=== PATIENT | female | born 1970 | race Caucasian/White ===

== ENCOUNTER 2017-04-04 16:03 | Emergency (ER) | payer MEDICAID ==
[~2017-04-04] VITALS: Ht 152.4 cm; Wt 67.0 kg
[~2017-04-04 16:03] MED LIST: ACET1TAB40 PO; IBUP-1542 PO
[2017-04-04 16:08] VITALS: Ht 152.4 cm; Wt 67.0 kg
[2017-04-04] MEDS ORDERED: ONDANSETRON (ODT) 4 MG TAB ODT STA (16:39)
--- NOTE | 2017-04-04 16:46 | ERD ---
ER Documentation Chief Complaint Date/Time DATE: 04/04/17 TIME: 16:43 Chief Complaint pt c/o dizziness with standing x 3 days HPI This is a 46-year-old female presents emergency department today complaining of dizziness, neck pain, headache in the back of her head, nausea for the past 3 days. States that the last time she had her menstrual cycle beginning of March she had heavy menstrual cycle. States when she walks she "feels drunk" . denies any fevers or chills, dysuria. ROS All systems reviewed and are negative except as per history of present illness. Medications Home Meds Active Scripts Ondansetron Hcl* (Zofran*) 4 Mg Tablet, 4 MG PO Q6H for NAUSEA AND/OR VOMITING, #30 TAB Prov:BENITA BECKHAM PA-C 04/04/17 Meclizine Hcl* (Antivert*) 12.5 Mg Tab, 12.5 MG PO Q6H Y for DIZZINESS, #20 TAB Prov:BENITA BECKHAM PA-C 04/04/17 Acetaminophen* (Tylophen*) 500 Mg Capsule, 1 CAP PO Q6H Y for PAIN AND OR ELEVATED TEMP, #30 CAP Prov:BENITA BECKHAM PA-C 04/04/17 Ibuprofen* (Motrin*) 600 Mg Tab, 600 MG PO Q6, #30 TAB Prov:BENITA BECKHAMC 04/04/17 Acetaminophen-Codeine* (Acetaminophen-Cod #3*) 300-30 Mg Tab, 1 TAB PO Q4H Y for PAIN LEVEL 6-10, #15 TAB Prov:CHO,MAJOR 02/26/15 Ibuprofen* (Motrin*) 600 Mg Tab, 600 MG PO Q6 for PAIN LEVEL 1-5, #15 TAB Prov:CHO,MAJOR 15 Allergies Allergies: Coded Allergies: No Known Drug Allergies (Verified Allergy, Unknown, 04/04/17) PMhx/Soc Medical and Surgical Hx: pt denies Medical Hx, pt denies Surgical Hx History of Surgery: No Anesthesia Reaction: No Hx Neurological Disorder: No Hx Respiratory Disorders: No Hx Cardiac Disorders: No Hx Psychiatric Problems: No Hx Miscellaneous Medical Probl: No Hx Alcohol Use: No Hx Substance Use: No Hx Tobacco Use: No Smoking Status: Never smoker Physical Exam Vitals Vital Signs Date Time Temp Pulse Resp B/P Pulse Ox O2 Delivery O2 Flow Rate FiO2 04/04/17 16:08 98.4 76 18 126/82 99 Physical Exam Const: No acute distress Head: Atraumatic Eyes: Normal Conjunctiva. PERRLA. EOM intact. ENT: Normal External Ears, Nose and Mouth. Neck: Full range of motion..~ No meningismus. Resp: Clear to auscultation bilaterally Cardio: Regular rate and rhythm, no murmurs Abd: Soft, non tender, non distended. Normal bowel sounds Skin: No petechiae or rashes Back: No midline or flank tenderness Ext: No cyanosis, or edema Neur: Awake and alert. No focal neurologic deficits. No gait ataxia. Psych: Normal Mood and Affect Result Diagram: 04/04/17164904/04/17 165 Results 24 hrs Laboratory Tests Test 04/04/17 16:50 04/04/17 17:04 White Blood Count 8.410^3/ul Red Blood Count 4.5110^6/ul Hemoglobin 12.3g/dl Hematocrit 36.5% Mean Corpuscular Volume 80.9fl Mean Corpuscular Hemoglobin 27.3pg Mean Corpuscular Hemoglobin Concent 33.7g/dl Red Cell Distribution Width 13.7% Platelet Count 75034^3/UL Mean Platelet Volume 9.8fl Neutrophils % 59.2% Lymphocytes % 32.7% Monocytes % 6.5% Eosinophils % 1.0% Basophils % 0.4% Nucleated Red Blood Cells % 0.0/100WBC Neutrophils # (Manual) 5.010^3/ul Lymphocytes # 2.810^3/ul Monocytes # 0.610^3/ul Eosinophils # 0.110^3/ul Basophils # 0.010^3/ul Nucleated Red Blood Cells # 0.010^3/ul Sodium Level 139mmol/L Potassium Level 3.5mmol/L Chloride Level 103mmol/L Carbon Dioxide Level 26mmol/L Anion Gap 14 Blood Urea Nitrogen 10mg/dl Creatinine 0.76mg/dl Glucose Level 109mg/dl Calcium Level 9.6mg/dl Total Bilirubin 0.1mg/dl Direct Bilirubin 0.00mg/dl Indirect Bilirubin 0.1mg/dl Aspartate Amino Transf (AST/SGOT) 37IU/L Alanine Aminotransferase (ALT/SGPT) 60IU/L Alkaline Phosphatase 93IU/L Total Protein 8.2g/dl Albumin 4.4g/dl Globulin 3.80g/dl Albumin/Globulin Ratio 1.15 Bedside Urine pH (LAB) 5.5 Bedside Urine Protein (LAB) Negative Bedside Urine Glucose (UA) Negative Bedside Urine Ketones (LAB) Negative Bedside Urine Blood Trace-intact Bedside Urine Nitrite (LAB) Negative Bedside Urine Leukocyte Esterase (L Negative Current Medications Medications (Trade) Dose Ordered Sig/Ana Route PRN Reason Start Time Stop Time Status Last Admin Dose Admin Ondansetron HCl (Zofran Odt) 4 mg ONCE STAT ODT 04/04/17 16:39 04/04/17 16:43 DC 04/04/17 16:51 Meclizine HCl (Antivert) 25 mg ONCE ONCE PO 04/04/17 17:00 04/04/17 17:01 DC 04/04/17 16:51 Ibuprofen (Motrin) 800 mg ONCE ONCE PO 04/04/17 17:00 04/04/17 17:01 DC 04/04/17 16:51 DIAGNOSTIC IMAGING REPORT Patient: KACEY CONROY : 1970 Age: 46 Sex: F MR #: [id number] DOS: 04/04/17 0000 Ordering MD: BENITA BECKHAM PA-C Location: [facility] Room/Bed: PROCEDURE: CT brain without contrast CLINICAL INDICATION: Dizziness . TECHNIQUE: CT of the brain without contrast was performed on a multidetector CT scanner, with multiplanar reformats. One or more of the following dose reduction techniques were used: Automated exposure control, adjustment in mA and / or kV according to patient size, use of iterative reconstructive technique. CTDIvol = 44 mGy; DLP = 720 mGy-cm. COMPARISON: None available FINDINGS: No acute intracranial hemorrhage is identified. No extra-axial fluid collection is seen. There is no mass effect. No midline shift is identified. Ventricles and sulci are within normal limits for size and configuration. The density of the brain is unremarkable. Singh-white differentiation is preserved. Calvarium and skull base are intact. Mastoid air cells and imaged paranasal sinuses grossly clear. IMPRESSION: Unremarkable noncontrast CT of the brain. RPTAT: VV .Ramiro Schneider MD, MD Date Time Electronically viewed and signed by .Ramiro Schneider MD, MD on 04/04/2017 17:12 .O/ CC: BENITA BECKHAM PA-C Procedures/MDM This 46-year-old female presents the emergency department today with multiple complaints. Given her complaints I did obtain laboratory workup as well as a UA and EKG. Laboratory workup shows no elevated white blood cell count. She is not anemic. Platelets are within normal limits. Electrolytes are within normal limits. Glucose within normal limits. Liver enzymes are within normal limits. UA is negative for infection Urine test is negative EKG read and interpreted by Dr. Reddy rate [address] elevation. No QT elongation are normal sinus rhythm. Low suspicion for acute NE, PE, pericarditis Discussed the patient with Dr. Reddy and he has recommended a head CT Head CT noncontrast is unremarkable. Patient has no gait ataxia and no focal neurologic deficits. Low suspicion for acute hemorrhage, mass, abscess, meningitis. She is afebrile and otherwise well-appearing. She does have full active range of motion of her neck. Patient was given Zofran, meclizine and Motrin here in the emergency department. When I went to reevaluate the patient she reported feeling better. She was sitting up talking on her phone. Symptoms at this time is consistent with dizziness possibly benign positional vertigo versus viral symptoms. Low suspicion for sepsis, meningitis, acute hemorrhage. Patient given a prescription for Zofran, meclizine and Tylenol and Motrin. At this time the patient is stable for discharge and outpatient management. Patient should follow up with their PCP in the next 1-2 days. They may return to the emergency department sooner for any persistent or worsening of symptoms. Patient understood and agreed with the plan. Patient was given Motrin, Zofran and meclizine here in the emergency department Departure Diagnosis: Primary Impression: Dizziness Condition: Fair BENITA BECKHAM PA-C Apr 04, 2017 16:45
[2017-04-04 16:58] LABS: URINE BLOOD (Dip) POC Trace-intact (NEGATIVE)
[2017-04-04] MEDS ORDERED: IBUPROFEN 800 MG TAB PO ONE (17:00)
[2017-04-04] MEDS ORDERED: MECLIZINE 12.5 MG TAB PO ONE (17:00)
--- NOTE | 2017-04-04 17:13 | RADRPT ---
PROCEDURE: CT brain without contrast CLINICAL INDICATION: Dizziness . TECHNIQUE: CT of the brain without contrast was performed on a multidetector CT scanner, with multi planar reformats. One or more of the following dose reduction techniques were used: Automated expos ure control, adjustment in mA and / or kV according to patient size, use of iterative reconstructive technique. CTDIvol = 44 mGy; DLP = 720 mGy-cm. COMPARISON: None available FINDINGS: No acute intracranial hemorrhage is identified. No extra-axial fluid collection is seen. There is no mass effect. No midline shift is identified. Ventricles and sulci are within normal limits for size and configuration. The density of the brain is unremarkable. Singh-white differentiation is preserved. Calvarium and skull base are intact. Mastoid air cells and imaged paranasal sinuses grossly clear. IMPRESSION: Unremarkable noncontrast CT of the brain. RPTAT: VV .Ramiro Schneider MD, Date Time Electronically viewed and signed by .Ramiro Schneider MD, on 04/04/2017 17:12 .O/
[2017-04-04 17:21] LABS: BASOPHILS % 0.4 % (0.0-2.0); EOSINOPHILS # 0.1 10^3/ul (0.0-0.5); HEMATOCRIT 36.5 % (37.0-47.0); HEMOGLOBIN 12.3 g/dl (12.0-16.0); LYMPHOCYTES # 2.8 10^3/ul (0.8-2.9); LYMPHOCYTES % 32.7 % (15.0-51.0); MEAN CORPUSCULAR HEMOGLOBIN 27.3 pg (29.0-33.0); MEAN CORPUSCULAR HGB CONC 33.7 g/dl (32.0-37.0); MEAN CORPUSCULAR VOLUME 80.9 fl (82.0-101.0); MEAN PLATELET VOLUME 9.8 fl (7.4-10.4); MONOCYTE # 0.6 10^3/ul (0.3-0.9); MONOCYTES % 6.5 % (0.0-11.0); NEUTROPHILS % 59.2 % (39.0-77.0); PLATELET COUNT 271 10^3/UL (140-415); RED BLOOD COUNT 4.51 10^6/ul (4.20-5.40); RED CELL DISTRIBUTION WIDTH 13.7 % (11.5-14.5); WHITE BLOOD COUNT 8.4 10^3/ul (4.8-10.8)
[2017-04-04 17:49] LABS: ALBUMIN 4.4 g/dl (3.3-4.9); ALBUMIN/GLOBULIN RATIO 1.15; BILIRUBIN,INDIRECT 0.1 mg/dl (0-1.1); BILIRUBIN,TOTAL 0.1 mg/dl (0.2-1.3); CALCIUM 9.6 mg/dl (8.4-10.2); CREATININE 0.76 mg/dl (0.44-1.00); POTASSIUM 3.5 mmol/L (3.5-5.1); TOTAL PROTEIN 8.2 g/dl (6.1-8.1)
[2017-04-04] MEDS ORDERED: IBUP-1542 PO (17:55)
[2017-04-04] MEDS ORDERED: MECL12.574 PO (17:56)
[2017-04-04] MEDS ORDERED: ACET500C5 PO (17:56)
[2017-04-04] MEDS ORDERED: ONDA4TAB8 PO (17:56)
== END 2017-04-04 18:20 | disposition home or self-care (01) ==
LOC: FTE 16:03
DX: R42 Dizziness and giddiness (principal); R11.0 Nausea
CPT/HCPCS: 36415; 70450; 80053; 81003; 85025; 93005; Z7502; Z7610

== ENCOUNTER 2017-07-03 14:03 | Emergency (ER) | payer MEDICAID ==
[~2017-07-03] VITALS: Wt 68.2 kg
[~2017-07-03 14:03] MED LIST changes: +ACET500C5 PO; +MECL12.574 PO; +ONDA4TAB8 PO
[2017-07-03] MEDS ORDERED: morphine 4 MG/ML VIAL IV STA (14:28)
[2017-07-03] MEDS ORDERED: SOD CHLORIDE 0.9% 1,000 ML IV STA (14:28)
[2017-07-03] MEDS ORDERED: METOCLOPRAMIDE 10 MG INJ IV STA (14:28)
[2017-07-03] MEDS ORDERED: ACETAMINOPHEN 325 MG TAB PO STA (14:28)
[2017-07-03] MEDS ORDERED: DIPHENHYDRAMINE 50 MG INJ IV STA (14:28)
--- NOTE | 2017-07-03 14:40 | ERD ---
ER Documentation Chief Complaint Chief Complaint fried, dizziness, rohan and ll extremity pain denies trauma HPI 46-year-old female with a history of vertigo, presents emergency department for complaints of intermittent, throbbing, 8 out of 10 headache located behind bilateral eyes 4 days. Patient notes associated blurred vision, nausea and vomiting. She also notes pain and weakness along her left upper and left lower extremity. She denies fever, chills, abdominal pain, trauma, fall or head injury. She denies prior imaging studies of her brain. She denies history of hypertension or diabetes. ROS All systems reviewed and are negative except as per history of present illness. Medications Home Meds Active Scripts Ondansetron Hcl* (Zofran*) 4 Mg Tablet, 4 MG PO Q6H for NAUSEA AND/OR VOMITING, #30 TAB Prov:BENITA BECKHAM PA-C 04/04/17 Meclizine Hcl* (Antivert*) 12.5 Mg Tab, 12.5 MG PO Q6H Y for DIZZINESS, #20 TAB Prov:BENITA BECKHAM PA-C 04/04/17 Acetaminophen* (Tylophen*) 500 Mg Capsule, 1 CAP PO Q6H Y for PAIN AND OR ELEVATED TEMP, #30 CAP Prov:BENITA BECKHAM PA-C 04/04/17 Ibuprofen* (Motrin*) 600 Mg Tab, 600 MG PO Q6, #30 TAB Prov:BENITA BECKHAMC 04/04/17 Acetaminophen-Codeine* (Acetaminophen-Cod #3*) 300-30 Mg Tab, 1 TAB PO Q4H Y for PAIN LEVEL 6-10, #15 TAB Prov:CHO,MAJOR 02/26/15 Ibuprofen* (Motrin*) 600 Mg Tab, 600 MG PO Q6 for PAIN LEVEL 1-5, #15 TAB Prov:CHO,MAJOR 15 Allergies Allergies: Coded Allergies: No Known Drug Allergies (Verified Allergy, Unknown, 07/03/17) PMhx/Soc History of Surgery: No Anesthesia Reaction: No Hx Neurological Disorder: No Hx Respiratory Disorders: No Hx Cardiac Disorders: No Hx Psychiatric Problems: No Hx Miscellaneous Medical Probl: No Hx Alcohol Use: No Hx Substance Use: No Hx Tobacco Use: No Physical Exam Vitals Vital Signs Date Time Temp Pulse Resp B/P Pulse Ox O2 Delivery O2 Flow Rate FiO2 07/03/17 14:05 99.1 93 20 142/90 97 Physical Exam Const: Well developed, well-nourished, in no acute distress Head: Atraumatic Eyes: Normal Conjunctiva, PERRLA, EOMI ENT: Normal External Ears, Nose. Patient with asymmetric smile with limited movement on the left side. Able to puff cheeks and raise eyebrows equally. Neck: Full range of motion..~ No meningismus. Resp: Clear to auscultation bilaterally Cardio: Regular rate and rhythm, no murmurs Abd: Soft, non tender, non distended. Normal bowel sounds Skin: No petechiae or rashes Back: No midline or flank tenderness Ext: No cyanosis, or edema. Patient with good strength against resistance at bilateral upper extremities at the shoulder and elbow joints. Patient with good strength against resistance however slightly limited at the left lower extremity at the hip and knee joint. Able to bear full weight and ambulate with steady gait. Neur: Awake and alert. Cranial nerves II through XII intact. Finger to nose intact. No pronator drift. Psych: Normal Mood and Affect Result Diagram: 07/03/17 1508 07/03/17 1508 Results 24 hrs Laboratory Tests Test 07/03/17 14:00 07/03/17 15:08 Urine Color YELLOW Urine Clarity CLEAR Urine pH 5.0 Urine Specific [place] 1.014 Urine Ketones NEGATIVEmg/dL Urine Nitrite NEGATIVEmg/dL Urine Bilirubin NEGATIVEmg/dL Urine Urobilinogen NEGATIVEmg/dL Urine Leukocyte Esterase NEGATIVELeu/ul Urine Microscopic RBC 2/HPF Urine Microscopic WBC 1/HPF Urine Hemoglobin 2+mg/dL Urine Glucose NEGATIVEmg/dL Urine Total Protein NEGATIVEmg/dl White Blood Count 9.210^3/ul Red Blood Count 4.6610^6/ul Hemoglobin 12.2g/dl Hematocrit 37.1% Mean Corpuscular Volume 79.6fl Mean Corpuscular Hemoglobin 26.2pg Mean Corpuscular Hemoglobin Concent 32.9g/dl Red Cell Distribution Width 13.8% Platelet Count 65667^3/UL Mean Platelet Volume 9.5fl Neutrophils % 58.9% Lymphocytes % 30.1% Monocytes % 8.1% Eosinophils % 1.6% Basophils % 0.8% Nucleated Red Blood Cells % 0.0/100WBC Neutrophils # 5.410^3/ul Lymphocytes # 2.810^3/ul Monocytes # 0.710^3/ul Eosinophils # 0.210^3/ul Basophils # 0.110^3/ul Nucleated Red Blood Cells # 0.010^3/ul Prothrombin Time 12.7Sec Prothrombin Time Ratio 1.0 INR International Normalized Ratio 0.95 Activated Partial Thromboplast Time 27.5Sec Sodium Level 140mmol/L Potassium Level 4.1mmol/L Chloride Level 103mmol/L Carbon Dioxide Level 26mmol/L Anion Gap 15 Blood Urea Nitrogen 15mg/dl Creatinine 0.57mg/dl Glucose Level 134mg/dl Calcium Level 9.5mg/dl Total Bilirubin 0.1mg/dl Direct Bilirubin 0.00mg/dl Indirect Bilirubin 0.1mg/dl Aspartate Amino Transf (AST/SGOT) 61IU/L Alanine Aminotransferase (ALT/SGPT) 100IU/L Alkaline Phosphatase 92IU/L Troponin I < 0.012ng/ml Total Protein 8.4g/dl Albumin 4.4g/dl Globulin 4.00g/dl Albumin/Globulin Ratio 1.10 Current Medications Medications (Trade) Dose Ordered Sig/Ana Route PRN Reason Start Time Stop Time Status Last Admin Dose Admin Sodium Chloride (NS) 1,000 ml @ 1,000 mls/hr Q1H STAT IV 07/03/17 14:28 07/03/17 15:27 DC 07/03/17 15:13 Acetaminophen (Tylenol Tab) 650 mg ONCE STAT PO 07/03/17 14:28 07/03/17 14:31 DC 07/03/17 15:15 Metoclopramide HCl (Reglan) 10 mg ONCE STAT IV 07/03/17 14:28 07/03/17 14:31 DC 07/03/17 15:14 Morphine Sulfate (morphine) 4 mg ONCE STAT IV 07/03/17 14:28 07/03/17 14:31 DC 07/03/17 15:15 Diphenhydramine HCl (Benadryl) 25 mg ONCE STAT IV 07/03/17 14:28 07/03/17 14:31 DC 07/03/17 15:13 Procedures/MDM PROCEDURE: CT Head without. CLINICAL INDICATION: Headache. TECHNIQUE: The study was performed utilizing a multi-slice, multidetector CT scanner. Direct spiral 1 mm axial sections were obtained through the head without the use of intravenous contrast material. 1 or more of the following dose reduction techniques were utilized: Automated exposure control, adjustment of the mA and/or kV according to patient's size, iterative reconstruction technique. Coronal and sagittal reformations were obtained. The images were reviewed on a PACS workstation. DICOM images are available. RADIATION DOSE: CTDIvol: 44.2 mGy DLP: 630.2 mGy-cm COMPARISON: 04/04/2017, 02/26/2015 FINDINGS: There is no intracranial hemorrhage, extra-axial fluid collection, mass lesion, midline shift or hydrocephalus. The ventricles, sulci and cisterns are within normal limits. The white matter is unremarkable. The lassiter-white matter differentiation is preserved. The basal cisterns are patent. The midline structures are intact. The orbits, calvarium and extracranial soft tissues are normal in appearance. The visualized paranasal sinuses, mastoid air cells and middle ear cavities are normally aerated. IMPRESSION: 1. No acute intracranial abnormality. No intracranial hemorrhage, extra-axial fluid collection, mass lesion or hydrocephalous. RPTAT: HGAS .José Elmore MD, MD Date Time Electronically viewed and signed by .José Elmore MD, MD on 07/03/2017 14: 57 .S/ CC: HOLLIE MORAN PA-C EKG: Interpreted by Kj Reddy and myself Rate/Rhythm: Normal Sinus Rhythm QRS, ST, T-waves: No changes consistent w/ acute ischemia Impression: No evidence of ischemia or arrhythmia This is a 46-year-old female with a history of vertigo who presents the emergency department for 8 out of 10 headache with associated dizziness described as a room spinning along with left sided subjective weakness, and blurred vision. Vital signs reviewed and within normal limits upon arrival. Patient was well-appearing and able to answer questions and perform his equal exam appropriately. She exhibited slight asymmetric smile and weakness to the left lower extremity against resistance. Physical exam otherwise unremarkable. Without history of diabetes, hypertension or other high risk factors. CBC showed no evidence of systemic infection or severe anemia. CMP showed no evidence of electrolyte abnormalities, severe acidosis, alkalosis , renal failure, or liver disease. UA showed no evidence of acute infection or hematuria. Urine test was negative. CT of the brain negative for acute process. She Received fluids, pain and nausea medication while in the emergency department and reported significant improvement of her symptoms. The patient's headache is unlikely related to serious etiology. The patient does not exhibit any clinical signs or symptoms, and has no risk factors to suggest headache etiology such as subarachnoid hemorrhage, acute vertebral or carotid dissection, intracranial mass, epidural, subdural hematoma, dural venous sinus thrombosis, giant cell arteritis, or pseudotumor cerebri. Patient symptoms likely due to vertigo versus atypical migraine headache. Case is discussed with Dr. Luiz Boswell who agreed with workup and plan to discharge with close follow-up with primary care in 1-2 days. Strict return precautions discussed Based on patient's history of present illness and physical examination the decision was made to discharge. The patient was re-evaluated after ED treatment and stabilizing measures, and symptoms have improved. There is no evidence of life threatening injuries or illnesses at this time. On re-examination, patient resting in no distress, stable vital signs, reports feeling better and safe for discharge with outpatient follow up with PMD in 1-2 days. Patient given return precautions. Departure Diagnosis: Primary Impression: Headache Headache type: unspecified Headache chronicity pattern: acute headache Intractability: not intractable Qualified Code: R51 - Acute nonintractable headache, unspecified headache type Additional Impressions: Dizziness Weakness of left lower extremity Weakness of left arm HOLLIE MORAN PA-C Jul 03, 2017 14:40
--- NOTE | 2017-07-03 14:57 | RADRPT ---
PROCEDURE: CT Head without. CLINICAL INDICATION: Headache. TECHNIQUE: The study was performed utilizing a multi-slice, multidetector CT scanner. Direct spira l 1 mm axial sections were obtained through the head without the use of intravenous contrast materia l. 1 or more of the following dose reduction techniques were utilized: Automated exposure control, adjustment of the mA and/or kV according to patient's size, iterative reconstruction technique. Co fauzia and sagittal reformations were obtained. The images were reviewed on a PACS workstation. DICOM images are available. RADIATION DOSE: CTDIvol: 44.2 mGyDLP: 630.2 mGy-cm COMPARISON: 04/04/2017, 02/26/2015 FINDINGS: There is no intracranial hemorrhage, extra-axial fluid collection, mass lesion, midline shift or hyd rocephalus. The ventricles, sulci and cisterns are within normal limits. The white matter is unrem arkable. The lassiter-white matter differentiation is preserved. The basal cisterns are patent. The m idline structures are intact. The orbits, calvarium and extracranial soft tissues are normal in veronica earance. The visualized paranasal sinuses, mastoid air cells and middle ear cavities are normally ae rated. IMPRESSION: 1. No acute intracranial abnormality. No intracranial hemorrhage, extra-axial fluid collection, ma ss lesion or hydrocephalous. RPTAT: HGAS .José Elmore MD, Date Time Electronically viewed and signed by .José Elmore MD, MD on 07/03/2017 14:57 .S/
[2017-07-03 15:20] LABS: ADD UMIC YES; UR ASCORBIC ACID NEGATIVE (NEGATIVE); UR BILIRUBIN (Dip) NEGATIVE (NEGATIVE); UR BLOOD (Dip) 2+ mg/dL (NEGATIVE); UR CLARITY CLEAR (CLEAR); UR COLOR YELLOW (YELLOW); UR GLUCOSE (Dip) NEGATIVE (NEGATIVE); UR KETONES (Dip) NEGATIVE (NEGATIVE); UR LEUKOCYTE ESTERASE (Dip) NEGATIVE Leu/ul (NEGATIVE); UR NITRITE (Dip) NEGATIVE (NEGATIVE); UR RBC 2 /HPF (0-5); UR SPECIFIC GRAVITY (Dip) 1.014 (1.003-1.030); UR TOTAL PROTEIN (Dip) NEGATIVE (NEGATIVE); UR UROBILINOGEN (Dip) NEGATIVE (NEGATIVE)
[2017-07-03 15:32] LABS: INR 0.95; PARTIAL THROMBOPLASTIN TIME 27.5 Sec (25.0-35.0); PROTIME 12.7 Sec (12.2-14.2)
[2017-07-03 15:41] LABS: BASOPHIL # 0.1 10^3/ul (0.0-0.1); BASOPHILS % 0.8 % (0.0-2.0); EOSINOPHILS # 0.2 10^3/ul (0.0-0.5); EOSINOPHILS % 1.6 % (0.0-7.0); HEMATOCRIT 37.1 % (37.0-47.0); HEMOGLOBIN 12.2 g/dl (12.0-16.0); LYMPHOCYTES # 2.8 10^3/ul (0.8-2.9); LYMPHOCYTES % 30.1 % (15.0-51.0); MEAN CORPUSCULAR HEMOGLOBIN 26.2 pg (29.0-33.0); MEAN CORPUSCULAR HGB CONC 32.9 g/dl (32.0-37.0); MEAN CORPUSCULAR VOLUME 79.6 fl (82.0-101.0); MEAN PLATELET VOLUME 9.5 fl (7.4-10.4); MONOCYTE # 0.7 10^3/ul (0.3-0.9); MONOCYTES % 8.1 % (0.0-11.0); NEUTROPHIL # 5.4 10^3/ul (1.6-7.5); NEUTROPHILS % 58.9 % (39.0-77.0); PLATELET COUNT 276 10^3/UL (140-415); RED BLOOD COUNT 4.66 10^6/ul (4.20-5.40); RED CELL DISTRIBUTION WIDTH 13.8 % (11.5-14.5); WHITE BLOOD COUNT 9.2 10^3/ul (4.8-10.8)
[2017-07-03 15:43] LABS: ALANINE AMINOTRANSFERASE 100 IU/L (13-69); ALBUMIN 4.4 g/dl (3.3-4.9); ALKALINE PHOSPHATASE 92 IU/L (42-121); ANION GAP 15 (8-16); ASPARTATE AMINO TRANSFERASE 61 IU/L (15-46); BILIRUBIN,INDIRECT 0.1 mg/dl (0-1.1); BILIRUBIN,TOTAL 0.1 mg/dl (0.2-1.3); BLOOD UREA NITROGEN 15 mg/dl (7-20); CALCIUM 9.5 mg/dl (8.4-10.2); CARBON DIOXIDE 26 mmol/L (21-31); CHLORIDE 103 mmol/L (97-110); CREATININE 0.57 mg/dl (0.44-1.00); GLUCOSE 134 mg/dl (70-220); POTASSIUM 4.1 mmol/L (3.5-5.1); SODIUM 140 mmol/L (135-144); TOTAL PROTEIN 8.4 g/dl (6.1-8.1)
[2017-07-03 15:54] LABS: TROPONIN-I < 0.012 ng/ml (0.00-0.12)
[2017-07-03] MEDS ORDERED: MECL12.574 PO (16:14)
[2017-07-03] MEDS ORDERED: NAPR-260 PO (16:14)
[2017-07-03 16:35] VITALS: BP 138/82; PULSE 80; RESP 20; TEMP 98.6
== END 2017-07-03 16:36 | disposition home or self-care (01) ==
LOC: FTE 14:03
DX: R51 Headache (principal); R53.1 Weakness; R07.9 Chest pain, unspecified
CPT/HCPCS: 36415; 70450; 80053; 81001; 84484; 85025; 85610; 85730; 93005; 96374; 96375; J1200; J2270; J2765; J7030; Z7502; Z7610

== ENCOUNTER 2018-11-21 18:12 | Emergency (ER) | payer MEDICAID ==
[~2018-11-21] VITALS: Ht 152.4 cm; Wt 67.1 kg
[~2018-11-21 18:12] MED LIST changes: +NAPR-985 PO
[2018-11-21 19:03] VITALS: Ht 152.4 cm; Wt 67.1 kg
[2018-11-21] MEDS ORDERED: KETOROLAC 30 MG INJ IV STA (21:32)
[2018-11-21] MEDS ORDERED: DIPHENHYDRAMINE 50 MG INJ IV STA (21:32)
[2018-11-21] MEDS ORDERED: SOD CHLORIDE 0.9% 1,000 ML IV STA (21:32)
[2018-11-21] MEDS ORDERED: METOCLOPRAMIDE 10 MG INJ IV STA (21:32)
--- NOTE | 2018-11-21 21:43 | ERD ---
ER Documentation Chief Complaint Chief Complaint KRAFT w/ dizziness x1 week HPI This is a 48-year-old female with a nonsignificant past medical history presents to ED with complaints of headache times 3 days. Patient describes the headache as throbbing and states that is intermittent, rates an 8 out of 10. Admits to some off-and-on dizziness associated with headache but denies any dizziness at this time. Admits to nausea but has not had any episodes of vomiting. Has had similar headaches in the past. Denies worse headache of life. Denies any trauma or falls to account for headache. Denies blurry vision, changes in vision, fever, chills, hematemesis, diarrhea, constipation, ches tpain, nausea, melena, abdominal pain, weakness, tingling, numbness and all other symptoms. ROS All systems reviewed and are negative except as per history of present illness. Medications Home Meds Active Scripts Meclizine Hcl* (Antivert*) 12.5 Mg Tab, 12.5 MG PO Q6H PRN for DIZZINESS, #30 TAB Prov:HOLLIE MORAN PA-C 07/03/17 Naproxen* (Naprosyn*) 500 Mg Tablet, 500 MG PO BID PRN for PAIN AND/OR INFLAMMATION, #30 TAB Prov:HOLLIE MORAN PA-C 07/03/17 Ondansetron Hcl* (Zofran*) 4 Mg Tablet, 4 MG PO Q6H for NAUSEA AND/OR VOMITING, #30 TAB Prov:BENITA BECKHAM PA-C 04/04/17 Meclizine Hcl* (Antivert*) 12.5 Mg Tab, 12.5 MG PO Q6H PRN for DIZZINESS, #20 TAB Prov:BENITA BECKHAM PA-C 04/04/17 Acetaminophen* (Tylophen*) 500 Mg Capsule, 1 CAP PO Q6H PRN for PAIN AND OR ELEVATED TEMP, #30 CAP Prov:BENITA BECKHAM PA-C 04/04/17 Ibuprofen* (Motrin*) 600 Mg Tab, 600 MG PO Q6, #30 TAB Prov:BENITA BECKHAMC 04/04/17 Acetaminophen-Codeine* (Acetaminophen-Cod #3*) 300-30 Mg Tab, 1 TAB PO Q4H PRN for PAIN LEVEL 6-10, #15 TAB Prov:CHO,MAJOR 02/26/15 Ibuprofen* (Motrin*) 600 Mg Tab, 600 MG PO Q6 for PAIN LEVEL 1-5, #15 TAB Prov:CHO,MAJOR 02/26/15 Allergies Allergies: Coded Allergies: No Known Drug Allergies (Verified Allergy, Unknown, 07/03/17) PMhx/Soc History of Surgery: No Anesthesia Reaction: No Hx Neurological Disorder: No Hx Respiratory Disorders: No Hx Cardiac Disorders: No Hx Psychiatric Problems: No Hx Miscellaneous Medical Probl: No Hx Alcohol Use: No Hx Substance Use: No Hx Tobacco Use: No Smoking Status: Never smoker FmHx Family History: No diabetes Physical Exam Vitals Vital Signs Date Temp Pulse Resp B/P (MAP) Pulse Ox O2 O2 Flow FiO2 Time Delivery Rate 11/21/18 97.8 66 16 151/86 100 19:03 (107) Physical Exam Physical Exam Vitals signs: Reviewed by me. General: Well developed, well nourished, in no acute distress. Patient is awake and alert. Head: Normocephalic, atraumatic. Eyes: Normal conjunctiva, Pupils PERRLA, EOM intact bilaterally x6 ENT: Pharynx is clear, Moist mucous membranes, external ears, nose and mouth normal Neck: Supple, no masses, lymphadenopathy or JVD Respiratory: Clear to auscultation bilaterally with no wheezing, rhonchi, rales, no distress Cardiovascular: RRR, no murmurs, rubs, or gallops Neurologic: Alert and oriented, moving all extremities, normal speech, no focal weakness, no cerebellar signs. Normal mentation Cranial nerves II through XII intact bilaterally Neuro: M/S: Alert and oriented Face: EOMI, face and pharynx with normal sensation and function Motor: Normal strength throughout Sensation: Normal sensation throughout Speech: Normal Cerebel: Normal coordination Normal gait Normal finger to nose Skin: warm and dry, No rash Psych: Normal mood Result Diagram: 11/21/18214911/21/182149 Results 24 hrs Laboratory Tests Test 11/21/18 21:37 11/21/18 21:50 POC Beta HCG, Qualitative NEGATIVE White Blood Count 8.0 10^3/ul Red Blood Count 4.92 10^6/ul Hemoglobin 11.3 g/dl Hematocrit 36.3 % Mean Corpuscular Volume 73.8 fl Mean Corpuscular Hemoglobin 23.0 pg Mean Corpuscular Hemoglobin Concent 31.1 g/dl Red Cell Distribution Width 16.2 % Platelet Count 303 10^3/UL Mean Platelet Volume 9.6 fl Immature Granulocytes % 0.200 % Neutrophils % 45.3 % Lymphocytes % 42.7 % Monocytes % 9.0 % Eosinophils % 2.2 % Basophils % 0.6 % Nucleated Red Blood Cells % 0.0 /100WBC Immature Granulocytes # 0.020 10^3/ul Neutrophils # 3.6 10^3/ul Lymphocytes # 3.4 10^3/ul Monocytes # 0.7 10^3/ul Eosinophils # 0.2 10^3/ul Basophils # 0.1 10^3/ul Nucleated Red Blood Cells # 0.0 10^3/ul Prothrombin Time 12.9 Sec Prothrombin Time Ratio 1.0 INR International Normalized Ratio 0.96 Activated Partial Thromboplast Time 29.2 Sec Sodium Level 142 mmol/L Potassium Level 4.3 mmol/L Chloride Level 105 mmol/L Carbon Dioxide Level 26 mmol/L Anion Gap 11 Blood Urea Nitrogen 17 mg/dl Creatinine 0.57 mg/dl Est Glomerular Filtrat Rate mL/min > 60 mL/min Glucose Level 130 mg/dl Calcium Level 9.6 mg/dl Current Medications Medications Dose Sig/Ana Start Time Status Last (Trade) Ordered Route PRN Stop Time Admin Dose Reason Admin Sodium 1,000 ml @ Q1H STAT 11/21/18 DC 11/21/18 Chloride 1,000 mls/hr IV 21:32 11/21/18 21:53 22:31 10 mg ONCE STAT 11/21/18 DC 11/21/18 Metoclopramid IV 21:32 11/21/18 21:53 e HCl 21:40 (Reglan) Ketorolac 30 mg ONCE STAT 11/21/18 DC 11/21/18 Tromethamine IV 21:32 11/21/18 21:53 (Toradol) 21:40 25 mg ONCE STAT 11/21/18 DC 11/21/18 Diphenhydrami IV 21:32 11/21/18 21:54 ne HCl 21:40 (Benadryl) Procedures/MDM LAB INTERPRETATION: CBC shows no evidence of hemorrhage or infection, mildly decreased hemoglobin 11.3, mildly decreased hematocrit 36.3 Chemistry shows no evidence of significant electrolyte abnormalities or renal insufficiency Coagulation study showed no concerning coagulopathy Urine negative ER COURSE: The patient was given IV normal saline, Reglan, Benadryl, Toradol for headache The medication was well tolerated and the patient reports improvement in symptoms. The patient was stable throughout ED course. I kept the patient and/or family informed of laboratory and diagnostic imaging results throughout the emergency room course. The patient was promptly evaluated and a treatment plan was devised based on H&P and other data. This plan was discussed with the patient who agreed and had no further questions or concerns prior to discharge. MEDICAL DECISION MAKIN-year-old female presents ED with headache times 3 days. The patient's headache is unlikely related to serious etiology. The patient does not exhibit any clinical signs or symptoms, and has no risk factors to suggest headache etiology such as subarachnoid hemorrhage, acute vertebral or carotid dissection, intracranial mass, epidural, subdural hematoma, dural venous sinus thrombosis, giant cell arteritis, CVA, encephalitis, meningitis, or pseudotumor cerebri. Patient's vitals are stable and patient can be managed with close outpatient follow-up. Patient was advised to follow-up with her primary care in the next 48 hours. Return to ED with any worsening symptoms. DISPOSITION PLAN: We discussed follow up with the patient's primary care doctor within 24 to 48 hours. Patient counseled regarding my diagnostic impression and care plan. Prior to discharge all questions answered. Pt agrees with treatment plan and understands strict return precautions. Precautionary instructions provided including instructions to return to the ER if not improving or for any worsening or changing symptoms or concerns. SPECIALIST FOLLOW UP RECOMMENDED: None Patient has been advised to follow up with primary care in 1-2 days. Disclaimer: Inadvertent spelling and grammatical errors are likely due to EHR/dictation software use and do not reflect on the overall quality of patient care. Also, please note that the electronic time recorded on this note does not necessarily reflect the actual time of the patient encounter. Departure Diagnosis: Primary Impression: Headache Headache type: unspecified Headache chronicity pattern: acute headache Intractability: not intractable Qualified Codes: R51 - Headache Condition: Stable Patient Instructions: Self-Care for Headaches Referrals: [facility] Additional Instructions: Patient advised to return to the ED immediately for new or worsening symptoms. Patient advised to follow up with primary care provider in the next 24-48 hours. Patient verbalized understanding and agrees with treatment plan and course of action. If patient has no primary care they may follow up with one of the community clinics listed on the following page or one of the options listed below [facility] + [facility] [address] [place] [id number] or [facility] [address] [place] [address] or [facility] [address] [place] [address] LONA AMOR PA-C Nov 21, 2018 21:43
[2018-11-21] MEDS ORDERED: ACET500C5 PO (22:40)
[2018-11-21 23:01] VITALS: BP 138/67; PULSE 68; RESP 16
== END 2018-11-21 23:02 | disposition home or self-care (01) ==
LOC: FTE 18:12
DX: R51 Headache (principal)
CPT/HCPCS: 36415; 80048; 81025; 85025; 85610; 85730; 96374; 96375; J1200; J1885; J2765; J7030; Z7502

== ENCOUNTER 2019-01-05 13:26 | Emergency (ER) | payer MEDICAID ==
[~2019-01-05] VITALS: Wt 62.5 kg
[2019-01-05 13:30] VITALS: BP 113/69; PULSE 80; RESP 18
[2019-01-05] MEDS ORDERED: IBUPROFEN 800 MG TAB PO ONE (14:00)
[2019-01-05] MEDS ORDERED: BUTA1CAP38 PO (14:39)
--- NOTE | 2019-01-05 15:04 | ERD ---
ER Documentation Chief Complaint Chief Complaint HEADACHE NON TRAUMATIC FOR A FEW DAYS. NO NEURO DEFICIT. HPI 48-year-old female presenting with headache for 3 days. Patient states is loca veda primarily on the left side. Comes and goes. She took Tylenol 2 hours ago which alleviated her symptoms. Denies fevers. Denies neck pain. Denies chest pain. Denies shortness of breath. Denies visual changes. Denies medical problems. NKDA. Surgical history denies. Social history denies ROS All systems reviewed and are negative except as per history of present illness. Medications Home Meds Active Scripts Lzvmhhbyai-Ugdflzgyqhtgw-Lcqwzdgf* (Fioricet*) 50-300-40 Mg Capsule, 1 CAP PO Q4H PRN for HEADACHE, #30 CAP Prov:FELIBERTO MIRANDA PA-C 01/05/19 Acetaminophen* (Tylophen*) 500 Mg Capsule, 1 CAP PO Q6H PRN for PAIN AND OR ELEVATED TEMP, #20 CAP Prov:LONA AMOR PA-C 11/21/18 Meclizine Hcl* (Antivert*) 12.5 Mg Tab, 12.5 MG PO Q6H PRN for DIZZINESS, #30 TAB Prov:HOLLIE MORAN PA-C 07/03/17 Naproxen* (Naprosyn*) 500 Mg Tablet, 500 MG PO BID PRN for PAIN AND/OR INFL AMMATION, #30 TAB Prov:HOLLIE MORANC 07/03/17 Ondansetron Hcl* (Zofran*) 4 Mg Tablet, 4 MG PO Q6H for NAUSEA AND/OR VOMITING, #30 TAB Prov:BENITA BECKHAM PA-C 04/04/17 Meclizine Hcl* (Antivert*) 12.5 Mg Tab, 12.5 MG PO Q6H PRN for DIZZINESS, #20 TAB Prov:BENITA BECKHAM PA-C 04/04/17 Acetaminophen* (Tylophen*) 500 Mg Capsule, 1 CAP PO Q6H PRN for PAIN AND OR ELEVATED TEMP, #30 CAP Prov:BENITA BECKHAMC 04/04/17 Ibuprofen* (Motrin*) 600 Mg Tab, 600 MG PO Q6, #30 TAB Prov:BENITA BECKHAMC 04/04/17 Acetaminophen-Codeine* (Acetaminophen-Cod #3*) 300-30 Mg Tab, 1 TAB PO Q4H PRN for PAIN LEVEL 6-10, #15 TAB Prov:CHO,MAJOR 02/26/15 Ibuprofen* (Motrin*) 600 Mg Tab, 600 MG PO Q6 for PAIN LEVEL 1-5, #15 TAB Prov:CHO,MAJOR 15 Allergies Allergies: Coded Allergies: No Known Drug Allergies (Verified Allergy, Unknown, 07/03/17) PMhx/Soc Medical and Surgical Hx: pt denies Medical Hx, pt denies Surgical Hx History of Surgery: No Anesthesia Reaction: No Hx Neurological Disorder: No Hx Respiratory Disorders: No Hx Cardiac Disorders: No Hx Psychiatric Problems: No Hx Miscellaneous Medical Probl: No Hx Alcohol Use: No Hx Substance Use: No Hx Tobacco Use: No Smoking Status: Never smoker FmHx Family History: No diabetes, No coronary disease, No other Physical Exam Vitals Vital Signs Date Temp Pulse Resp B/P (MAP) Pulse Ox O2 O2 Flow FiO2 Time Delivery Rate 01/05/19 98.0 80 18 113/69 98 13:30 (84) Physical Exam GENERAL: The patient is well-appearing, well-nourished, in no acute distress HEENT: Atraumatic. Conjunctivae are pink. Pupils equal, round, and reactive to light. There is no scleral icterus. Tympanic membranes clear bilaterally. Oropharynx clear. CHEST: Clear to auscultation bilaterally. There are no rales, wheezes or rhonchi. HEART: Regular rate and rhythm. No murmurs, clicks, rubs or gallops. No S3 or S4. NEUROLOGIC: Alert and oriented. Cranial nerves II through XII intact. Motor strength in all 4 extremities with 5 out of 5 strength. Sensation grossly intact. Normal speech and gait. Results 24 hrs Laboratory Tests Test 01/05/19 14:21 01/05/19 14:39 Bedside Urine pH (LAB) 5.5 Bedside Urine Protein (LAB) 1+ Bedside Urine Glucose (UA) Negative Bedside Urine Ketones (LAB) Negative Bedside Urine Blood 2+ Bedside Urine Nitrite (LAB) Negative Bedside Urine Leukocyte Esterase (L Negative POC Beta HCG, Qualitative NEGATIVE Current Medications Medications Dose Sig/Ana Start Time Status Last (Trade) Ordered Route PRN Stop Time Admin Dose Reason Admin Ibuprofen 800 mg ONCE ONCE 01/05/19 DC 01/05/19 (Motrin) PO 14:00 14:17 01/05/19 14:01 Procedures/MDM MDM: 48 yr old female complaining of headache. I have low suspicion for intracranial hemorrhage or neuro deficit. I have low suspicion for meningitis or sepsis. I have low suspicion for neuro deficit. Patient did not require CT scan patient's exam and vitals are stable. Patient is told if symptoms change or worsen to follow up with PMD. All questions answered at discharge. Departure Diagnosis: Primary Impression: Headache Condition: Stable Patient Instructions: Self-Care for Headaches Referrals: [facility] (PCP) Additional Instructions: FOLLOW UP WITH YOUR PRIMARY CARE PHYSICIAN TOMORROW.Return to this facility if you are not improving as expected. FELIBERTO MIRANDA PA-C January 05, 2019 15:04
== END 2019-01-05 14:49 | disposition home or self-care (01) ==
LOC: FTE 13:26
DX: R51 Headache (principal)
CPT/HCPCS: 81003; 81025; Z7502; Z7610; 99283